=== PATIENT | female | born 1985 | race American Indian/Alaskan Native ===

== ENCOUNTER 2020-04-29 22:25 | Emergency (ER) | payer BC ==
[2020-04-29 23:59] VITALS: BP 140/92
[2020-04-30 02:13] LABS: HCG Qualitative,Urine Negative (Negative)
--- NOTE | 2020-04-30 03:10 | Emergency Department Report ---
ED Lower Extremity HPI - General Chief Complaint: Extremity Injury, Lower Stated Complaint: RIGHT ANKLE PAIN Time Seen by Provider: 04/30/20 02:55 Source: patient Mode of arrival: Ambulatory Limitations: No Limitations - History of Present Illness Complaint: ankle injury -: Gradual, days(s) (3) Injury: Ankle: Right Type of Injury: unknown Place: home Severity: mild, moderate Worsens With: weight bearing Context: other (unsure of injuiry ) Associated Symptoms: swelling (mechanism), able to partially bear weight - Related Data Allergies Allergy/AdvReac Type Severity Reaction Status Date / Time No Known Allergies Allergy Unverified 04/29/20 23:47 ED Review of Systems ROS: Stated complaint: RIGHT ANKLE PAIN Other details as noted in HPI Comment: All other systems reviewed and negative ED Past Medical Hx - Past Medical History Previous Medical History?: Yes Additional medical history: Fibroids - Surgical History Past Surgical History?: Yes Additional Surgical History: Fibroid removed - Social History Smoking Status: Never Smoker ED Physical Exam - General Limitations: No Limitations General appearance: alert, in no apparent distress - Head Head exam: Present: atraumatic, normocephalic - Eye Eye exam: Present: normal appearance - ENT ENT exam: Present: mucous membranes moist - Neck Neck exam: Present: normal inspection - Respiratory Respiratory exam: Present: normal lung sounds bilaterally. Absent: respiratory distress - Cardiovascular Cardiovascular Exam: Present: regular rate, normal rhythm. Absent: systolic murmur, diastolic murmur, rubs, gallop - GI/Abdominal GI/Abdominal exam: Present: soft, normal bowel sounds - Extremities Exam Extremities exam: Present: normal inspection, tenderness, joint swelling (To the lateral malleolus. Drawer test is negative. Pulses 2+ capillary refills are brisk. Joint is stable full range of motion is noted) - Back Exam Back exam: Present: normal inspection - Neurological Exam Neurological exam: Present: alert, oriented X3 - Psychiatric Psychiatric exam: Present: normal affect, normal mood - Skin Skin exam: Present: warm, dry, intact, normal color. Absent: rash ED Course Vital Signs 04/29/20 23:49 Temperature 98.2 F Pulse Rate 68 Respiratory 14 Rate Blood Pressure 140/92 O2 Sat by Pulse 100 Oximetry ED Lower Extremity MDM - Medical Decision Making 34-year-old female injury to her right ankle no bony tenderness is noted. Joint stable with tenderness to the anterior talofibular ligament. Suggestive of ankle sprain ambulatory she was splinted and advised on proper ice elevation and rest therapy and anti-inflammatories for swelling and pain management. Critical care attestation.: If time is entered above; I have spent that time in minutes in the direct care of this critically ill patient, excluding procedure time. ED Disposition Condition: Stable Referrals: PRIMARY CARE, [Primary Care Provider] - 3-5 Days
== END 2020-04-30 03:41 | disposition home or self-care (01) ==
LOC: ED 22:25
DX: M25.571 Pain in right ankle and joints of right foot (principal)
CPT/HCPCS: 81025; 99283